=== PATIENT | male | born 1985 | race Caucasian/White ===

== ENCOUNTER 2021-12-13 22:17 | Emergency (ER) | payer OTHER, SELFPAY ==
[2021-12-13 22:21] VITALS: BP 151/93; PULSE 93; RESP 18; TEMP 36.7; O2SAT 96; BMI 22.0
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
[2021-12-13] MEDS: oxyCODONE-APAP 5-325 mg Tablet 2 TAB PO (23:52)
[2021-12-14 00:30] VITALS: BP 121/83; PULSE 86; RESP 20; O2SAT 98
== END 2021-12-14 00:53 | disposition home or self-care (01) ==
PROVIDERS: Emergency Provider Emergency Medicine
DX: S60.211A Contusion of right wrist, initial encounter (principal); V29.9XXA Motorcycle rider (driver) (passenger) injured in unspecified traffic accident, initial encounter; M79.89 Other specified soft tissue disorders
CPT/HCPCS: 73090; 73100; 99283